=== PATIENT | male | born 1985 | race Caucasian/White ===

== ENCOUNTER 2020-04-11 19:06 | Emergency (ER) | payer OTHER ==
[~2020-04-11] VITALS: Ht 180.3 cm; Wt 74.8 kg
[~2020-04-11 19:06] MED LIST: AMOX500 PO; CEPH500 PO; HYDACE5 PO; PROM25 PO
[2020-04-11] MEDS ORDERED: Vistaril25 MG PO (22:13)
== END 2020-04-11 22:39 | disposition home or self-care (01) ==
LOC: ER 19:06
DX: F41.9 Anxiety disorder, unspecified (principal); J45.909 Unspecified asthma, uncomplicated; Z86.718 Personal history of other venous thrombosis and embolism
CPT/HCPCS: 71046; 99285-25